=== PATIENT | female | born 2000 | race Caucasian/White ===

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

== ENCOUNTER 2022-04-29 13:37 | Outpatient (REF) | payer MEDICAID, SELFPAY ==
[2022-04-29 19:17] LABS: Abs Immature Grans 0.01 10^3/uL (0.0-0.06); Absolute Basophil Count 0.08 10^3/uL (0.0-0.2); Absolute Eosinophil Count 0.07 10^3/uL (0.0-0.7); Absolute Lymphocyte Count 2.01 10^3/uL (1.2-3.4); Absolute Monocyte Count 0.83 10^3/uL (0.1-0.8); Absolute Neutrophil Count 2.76 10^3/uL (1.2-6.7); Basophils % 1.4; Eosinophils % 1.2; HGB 12.8 g/dL (11.2-15.7); Immature Grans % 0.2; Lymphocytes % 34.9; MCH 27.2 pg (27.0-33.0); MCHC 34.6 % (32.0-36.0); MCV 79 fL (80-95); MPV 11.6 fL (8.0-11.0); Monocytes % 14.4; Neutrophils % 47.9; Platelet Count 345 10^3/uL (130-400); RDW 15.1 % (11.7-14.6); RDW-SD 42.5 fL; WBC 5.76 10^3/uL (4.4-10.8)
[2022-04-29 19:38] LABS: ALT 15 U/L (14-59); AST 15 U/L (15-37); Albumin 4.1 g/dL (3.4-5.0); Alkaline Phosphatase 76 U/L (46-116); Anion Gap 8.3 mmol/L (3-11); BUN 18 mg/dL (7-18); Bilirubin, Total 0.4 mg/dL (0.2-1.0); CO2 27.7 mmol/L (21.0-32.0); CREATININE 0.6 mg/dL (0.55-1.02); Calcium 8.9 mg/dL (8.5-10.1); Chloride 106 mmol/L (98-107); Glucose 75 mg/dL (74-106); Potassium 4.4 mmol/L (3.5-5.1); Sodium 142 mmol/L (136-145); TSH (W/Ref FT4) 1.18 uIU/mL (0.36-3.74); Total Protein 7.6 g/dL (6.4-8.2)
[2022-04-29 19:39] LABS: C-Reactive Protein < 0.05 mg/dL (0.0-0.3)
== END 2022-04-29 13:38 | disposition home or self-care (01) ==
LOC: NCHCN 13:37
PROVIDERS: Visit Provider Physician Assistant
DX: R53.83 Other fatigue (principal); G89.4 Chronic pain syndrome
CPT/HCPCS: 80053; 84443; 85025; 86140

== ENCOUNTER 2022-12-28 16:38 | Outpatient (REF) | payer MEDICAID, SELFPAY ==
[2022-12-28 20:21] LABS: Iron 126 ug/dL (50-170); Total Iron Binding Capacity 423 ug/dL (250-450); Transferrin Sat 30 % (15-50)
[2022-12-28 20:34] LABS: Ferritin 11 ng/mL (8-252)
== END 2022-12-28 16:39 | disposition home or self-care (01) ==
LOC: NCHCN 16:38
PROVIDERS: Visit Provider Physician Assistant
DX: Z86.2 Personal history of diseases of the blood and blood-forming organs and certain disorders involving the immune mechanism (principal)
CPT/HCPCS: 82728; 83540; 83550